=== PATIENT | male | born 1980 | race American Indian/Alaskan Native ===

== ENCOUNTER 2018-10-07 13:40 | Emergency (ER) | payer MEDICAID, OTHER ==
[2018-10-07 13:59] VITALS: BP 123/87
[2018-10-07] MEDS ORDERED: IBUPROFEN PO ONE (17:20)
[2018-10-07] MEDS ORDERED: NORCO 5/325 PO ONE (17:20)
[2018-10-07] MEDS ORDERED: ZOFRAN ODT PO ONE (17:20)
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
== END 2018-10-07 17:44 | disposition home or self-care (01) ==
LOC: ED 13:40
DX: S39.012A Strain of muscle, fascia and tendon of lower back, initial encounter (principal); M25.532 Pain in left wrist; M25.552 Pain in left hip; V89.2XXA Person injured in unspecified motor-vehicle accident, traffic, initial encounter; Y93.89 Activity, other specified; Y92.488 Other paved roadways as the place of occurrence of the external cause; Y99.8 Other external cause status
CPT/HCPCS: 99283; Q0162